=== PATIENT | female | born 1980 | race African-American/Black ===

== ENCOUNTER 2020-03-13 08:15 | Emergency (ER) | payer OTHER ==
[~2020-03-13] VITALS: Ht 162.6 cm; Wt 97.1 kg
[2020-03-13] MEDS ORDERED: PROP10 (08:29)
[2020-03-13 13:51] LABS: Source, Urine Clean Catch
[2020-03-13 13:53] LABS: Appearance, Urine Cloudy (Clear); Bilirubin, Urine Neg (Neg); Blood, Urine 1+ (Neg); Color, Urine Yellow (P-Yellow); Glucose Qualitative, Urine Neg (Neg); Ketones, Urine Neg (Neg); Leukocyte Esterase, Urine 1+ (Neg); Nitrite, Urine Pos (Neg); Protein, Urine 1+ (Neg); Specific Gravity, Urine 1.025 (1.003-1.022); Urobilinogen, Urine NORM (Normal)
[2020-03-13 14:10] LABS: Bacteria Many /hpf; Squamous Epithelial Cells Many /hpf (Few)
[2020-03-13] MEDS ORDERED: Percocet 5-3251 EACH PO (14:48)
[2020-03-13] MEDS ORDERED: Cephalexin500 M1 PO (14:48)
[2020-03-13] MEDS ORDERED: KETO10 PO (14:48)
== END 2020-03-13 15:11 | disposition home or self-care (01) ==
LOC: ER 08:15
PROVIDERS: Physician Assistant
DX: N39.0 Urinary tract infection, site not specified (principal); Z88.5 Allergy status to narcotic agent; Z79.899 Other long term (current) drug therapy
CPT/HCPCS: 72100; 81001; 87077; 87086; 87186; 96374; 96375; 96376; 99284-25; A9270; J1170; J1885